=== PATIENT | male | born 1995 | race Caucasian/White ===

== ENCOUNTER 2019-01-12 20:14 | Emergency (ER) | payer OTHER ==
[~2019-01-12] VITALS: Ht 175.3 cm; Wt 61.6 kg
--- NOTE | 2019-01-12 20:34 | NUR ---
Patient states he had the flu about two weeks ago and was recently "exposed to bronchitits." Patient rests comfortably and in no obvious distress.
[2019-01-12] MEDS ORDERED: ALBUTEROL SULFATE 2.5 MG/3 ML ONE ×2 (20:46→22:09)
[2019-01-12] MEDS ORDERED: ALBUTEROL/IPRATROPIUM 2.5MG/0.5MG, 3 ML ONE (20:46)
[2019-01-12] MEDS ORDERED: ALBUTEROL/IPRATROPIUM 2.5MG/0.5MG, 3 ML NPPB ONE (21:00)
[2019-01-12] MEDS ORDERED: ALBUTEROL SULFATE 2.5 MG/3 ML NPPB ONE ×2 (21:00→22:30)
--- NOTE | 2019-01-12 21:00 | NUR ---
RT finished neb tx. Patient resting comfortably.
[2019-01-12 22:24] VITALS: BP 97/66
== END 2019-01-12 22:33 | disposition home or self-care (01) ==
LOC: ED 21:15
DX: J45.901 Unspecified asthma with (acute) exacerbation (principal); J20.8 Acute bronchitis due to other specified organisms
CPT/HCPCS: 93005; 94640; 99284; J7512; J7613; J7620